=== PATIENT | female | born 1955 ===

== ENCOUNTER 2020-06-24 11:29 | Day surgery (SDC) | payer OTHER ==
[~2020-06-24] VITALS: Ht 157.5 cm; Wt 60.1 kg
== END 2020-06-24 14:01 | disposition home or self-care (01) ==
LOC: ORSCSDS 11:29
PROVIDERS: Student in an Organized Health Care Education/Training Program
PROC: 0DBK8ZX Excision of Ascending Colon, Via Natural or Artificial Opening Endoscopic, Diagnostic (ICD-10-PCS; principal; 2020-06-24 12:45)
PROC: 0DBH8ZX Excision of Cecum, Via Natural or Artificial Opening Endoscopic, Diagnostic (ICD-10-PCS; principal; 2020-06-24 12:45)
PROC: 0DBN8ZX Excision of Sigmoid Colon, Via Natural or Artificial Opening Endoscopic, Diagnostic (ICD-10-PCS; principal; 2020-06-24 12:45)
DX: Z12.11 Encounter for screening for malignant neoplasm of colon (principal); D12.2 Benign neoplasm of ascending colon; D12.0 Benign neoplasm of cecum; D12.5 Benign neoplasm of sigmoid colon; K57.30 Diverticulosis of large intestine without perforation or abscess without bleeding; E78.5 Hyperlipidemia, unspecified
CPT/HCPCS: 88305; J2704; J7120

== ENCOUNTER → 2022-06-12 | Outpatient (CLI) | payer BC | LOC: LAB SHORT 11:24 | DX: E83.52 Hypercalcemia (principal) | CPT/HCPCS: 83970 ==

== ENCOUNTER 2022-06-18 10:27 | Day surgery (SDC) | payer BC ==
[~2022-06-18] VITALS: Ht 157.5 cm; Wt 61.5 kg
== END 2022-06-18 13:08 | disposition home or self-care (01) ==
LOC: ORSCSDS 10:27
PROVIDERS: Student in an Organized Health Care Education/Training Program
PROC: 0DBN8ZX Excision of Sigmoid Colon, Via Natural or Artificial Opening Endoscopic, Diagnostic (ICD-10-PCS; principal; 2022-06-18 12:45)
PROC: 0DBM8ZX Excision of Descending Colon, Via Natural or Artificial Opening Endoscopic, Diagnostic (ICD-10-PCS; principal; 2022-06-18 12:45)
PROC: 0DBH8ZX Excision of Cecum, Via Natural or Artificial Opening Endoscopic, Diagnostic (ICD-10-PCS; principal; 2022-06-18 12:45)
PROC: 0DBK8ZX Excision of Ascending Colon, Via Natural or Artificial Opening Endoscopic, Diagnostic (ICD-10-PCS; principal; 2022-06-18 12:45)
DX: Z12.11 Encounter for screening for malignant neoplasm of colon (principal); Z86.010 Personal history of colon polyps; D12.0 Benign neoplasm of cecum; D12.2 Benign neoplasm of ascending colon; D12.4 Benign neoplasm of descending colon; K63.5 Polyp of colon; K57.50 Diverticulosis of both small and large intestine without perforation or abscess without bleeding
CPT/HCPCS: 88305; J2704; J7120